=== PATIENT | female | born 2000 | race Caucasian/White ===

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

== ENCOUNTER 2023-10-03 15:39 | Emergency (ER) | payer OTHER ==
[~2023-10-03] VITALS: Ht 162.6 cm; Wt 80.3 kg
[~2023-10-03 15:39] MED LIST: NITR100C7 PO; ONDA8TAB87 PO
[2023-10-03 15:53] VITALS: BP 110/70; PULSE 95; RESP 20; TEMP 98.8; O2SAT 97
[2023-10-03 16:00] VITALS: O2SAT 97
[2023-10-03] MEDS ORDERED: IBUP-2213 PO (17:10)
[2023-10-03] MEDS: KETOROLAC 30 MG/ML VIAL IM ONE (17:32)
== END 2023-10-03 17:53 | disposition home or self-care (01) ==
LOC: MED 15:39
DX: R07.89 Other chest pain (principal); Z79.899 Other long term (current) drug therapy
CPT/HCPCS: 71045; 81025; 93005; 96372; 99283; J1885

== ENCOUNTER 2023-12-30 09:37 | Emergency (ER) | payer OTHER ==
[~2023-12-30] VITALS: Ht 162.6 cm; Wt 78.9 kg
[~2023-12-30 09:37] MED LIST changes: +IBUP-2213 PO
[2023-12-30 09:50] VITALS: BP 106/70; PULSE 83; RESP 18; TEMP 98.2; O2SAT 98
[2023-12-30] MEDS: KETOROLAC 30 MG/ML VIAL IM ONE (10:32)
[2023-12-30] MEDS: LIDOCAINE 5% 1 EA PATCH TP ONE (10:34)
[2023-12-30] MEDS ORDERED: IBUP-2213 PO (10:42)
[2023-12-30] MEDS ORDERED: LID5T TP (10:43)
[2023-12-30 10:47] VITALS: BP 112/62; PULSE 77; RESP 16; TEMP 98.2; O2SAT 98
== END 2023-12-30 10:47 | disposition home or self-care (01) ==
LOC: MED 09:37
DX: M54.50 Low back pain, unspecified (principal); Z79.1 Long term (current) use of non-steroidal anti-inflammatories (NSAID); Z79.899 Other long term (current) drug therapy; V89.2XXA Person injured in unspecified motor-vehicle accident, traffic, initial encounter; Y93.89 Activity, other specified; Y92.89 Other specified places as the place of occurrence of the external cause; Y99.8 Other external cause status
CPT/HCPCS: 81025; 96372; 99283; J1885

== ENCOUNTER 2024-02-04 22:50 | Emergency (ER) | payer OTHER ==
[~2024-02-04] VITALS: Ht 162.6 cm; Wt 78.6 kg
[~2024-02-04 22:50] MED LIST changes: +LID5T TP
[2024-02-04 23:14] VITALS: BP 110/75; PULSE 78; RESP 14; TEMP 98.7; O2SAT 99
[2024-02-04 23:22] VITALS: BP 110/75; PULSE 78; RESP 14; TEMP 98.7
[2024-02-04 23:58] LABS: FLU A ANTIGEN negative (NEGATIVE); FLU B ANTIGEN negative (NEGATIVE)
[2024-02-05 02:16] VITALS: O2SAT 99
[2024-02-05] MEDS ORDERED: NAPR-337 PO (02:36)
[2024-02-05] MEDS ORDERED: AMOX1TAB8 PO (02:36)
[2024-02-05] MEDS ORDERED: PRED20TA5 PO (02:36)
[2024-02-05] MEDS ORDERED: FLONAS NS (02:36)
[2024-02-05] MEDS: predniSONE 20 MG TAB PO ONE (02:42)
[2024-02-05] MEDS: KETOROLAC 30 MG/ML VIAL IM ONE (02:42)
== END 2024-02-05 02:50 | disposition home or self-care (01) ==
LOC: MED 22:50
DX: J01.90 Acute sinusitis, unspecified (principal); Z20.822 Contact with and (suspected) exposure to COVID-19; Z79.899 Other long term (current) drug therapy
CPT/HCPCS: 71045; 81025; 87426; 87804; 96372; 99284; J1885; J7512

== ENCOUNTER 2024-03-27 23:10 | Emergency (ER) | payer OTHER ==
[~2024-03-27] VITALS: Ht 165.1 cm; Wt 65.8 kg
[~2024-03-27 23:10] MED LIST changes: +AMOX1TAB8 PO; +FLONAS NS; +NAPR-337 PO; +PRED20TA5 PO
[2024-03-27 23:23] VITALS: BP 120/75; PULSE 76; RESP 14; TEMP 97.3; O2SAT 99
== END 2024-03-28 00:25 | disposition home or self-care (01) ==
LOC: MED 23:10
DX: R20.0 Anesthesia of skin (principal); R51.9 Headache, unspecified; Z79.899 Other long term (current) drug therapy
CPT/HCPCS: 99281